=== PATIENT | female | born 1980 | race Caucasian/White ===

== ENCOUNTER 2016-10-26 11:31 | Emergency (ER) | payer OTHER ==
[~2016-10-26] VITALS: Ht 162.6 cm; Wt 84.0 kg
[~2016-10-26 11:31] MED LIST: BENZ0.5T PO; CLON.5 PO; FLUO-1 PO; LITH150C7 PO; OMPR20CCR PO; PROP10TA6 PO; TRAZ100 PO
[2016-10-26 11:39] VITALS: BP 125/86; PULSE 68; RESP 16; TEMP 98.6; O2SAT 96
[2016-10-26] MEDS ORDERED: XANA2TAB2 PO (12:01)
[2016-10-26] MEDS ORDERED: SAPH10SU3 SL (12:01)
[2016-10-26] MEDS ORDERED: FURO1TAB62 PO (12:01)
[2016-10-26] MEDS ORDERED: IBUP-1129 PO (12:01)
[2016-10-26] MEDS ORDERED: HYDR50TA94 PO (12:01)
[2016-10-26] MEDS ORDERED: LITH600C PO (12:01)
[2016-10-26] MEDS ORDERED: ZOFR8TAB4 SL (12:01)
[2016-10-26] MEDS ORDERED: ALLI60CA2 PO (12:01)
[2016-10-26] MEDS ORDERED: GABA100C4 PO (12:01)
[2016-10-26] MEDS ORDERED: POTA-243 PO (12:01)
--- NOTE | 2016-10-26 12:32 | RADHPO ---
EXAM DATE/TIME: 10/26/2016 12:16 [facility] COMPARISON: No previous studies available for comparison. INDICATIONS : Left knee pain after fall. MEDICAL HISTORY : Torn meniscus SURGICAL HISTORY : None. ENCOUNTER: Initial ACUITY: 2 days PAIN SCORE: 6/10 LOCATION: Left entire knee FINDINGS: Four view examination of the left knee demonstrates no evidence of fracture or dislocation. Bony min eralization is normal. The articular surfaces are intact. The suprapatellar soft tissues have a nor mal configuration. CONCLUSION: Negative for fracture or dislocation. Follow up in 7-10 days is suggested if symptoms persist. Jarrod Gamboa MD FACR on October 26, 2016 at 12:30 Board Certified Radiologist. This report was verified electronically.
--- NOTE | 2016-10-26 12:39 | PD ---
HPI Chief Complaint: Fall Time Seen by Provider: 12:00 Travel History International Travel<30 days: No Contact w/Intl Traveler<30days: No Traveled to known affect area: No History of Present Illness HPI 36-year-old female presents emergency department for evaluation of left knee pain status post fall yesterday. Patient reports she was walking with a walker yesterday when she tripped falling onto her left flexed knee. She did not hit her head. No loss of consciousness. Reports pain only in the left knee. Pain is worse with flexion and weightbearing. Patient underwent left hip ORIF in [place] [address] Julián rico after sustaining a hip fracture from a fall she has been ambulating with a walker since. She also reports bilateral lower extremity swelling since the surgery. She reports her primary care doctor recently started her her on a diuretic for the edema with little improvement. She denies having prior ultrasound of the legs. She denies fever, chills, chest pain, shortness breath, or abdominal pain. PFSH Past Medical History Narrative Medical Significant for bipolar, depression, anxiety, schizoaffective disorder. Recent left hip ORIF Anemia: Yes Bipolar Disorder: Yes Anxiety: Yes Depression: Yes Chest Pain: Yes Diabetes: No Diminished Hearing: No Gastrointestinal Disorders: Yes GERD: Yes Medical other: Yes (edema) Psychiatric: Yes Schizophrenia: Yes Seizures: Yes (PT STATES " I THINK I HAD A SEIZURE A COUPLE OF MONTHS AGO") Tetanus Vaccination: > 5 Years Influenza Vaccination: No PNEUMOCCOCAL Vaccine (Year): 2 ?: Not LMP: PT STATES YEARS-DENIES POSSIBILITY OF Past Surgical History Appendectomy: Yes Cholecystectomy: Yes Tonsillectomy: Yes Social History Alcohol Use: Yes (OCCASIONALLY) Tobacco Use: Yes (ELECTRONIC CIGARETTES) Substance Use: No Allergies-Medications (Allergen,Severity, Reaction): Coded Allergies: Latuda (Verified Allergy, Severe, HALLUCINATIONS, 10/26/16) Reported Meds & Prescriptions Reported Meds & Active Scripts Active Reported Xanax (Alprazolam) 2 Mg Tab 2 Mg PO Q8H PRN Hydroxyzine HCl 50 Mg Tab 50 Mg PO BID Lasix (Furosemide) 20 Mg Tab 20 Mg PO DAILY Klor-Con 10 (Potassium Chloride) 10 Meq Tab 10 Meq PO DAILY Gabapentin 100 Mg Cap 100 Mg PO TID Saphris (Asenapine) 10 Mg Subl 10 Mg SL BID Zofran Odt (Ondansetron Odt) 8 Mg Tab 8 Mg SL Q8HR Zeferino (Orlistat) 60 Mg Cap 1 Caplet PO DIRECTED Motrin Ib (Ibuprofen) 200 Mg Tablet 600 Mg PO Q4HR PRN [place] Carbonate 600 Mg Cap 900 Mg PO BID Physical Exam Narrative GENERAL: Alert, well-nourished female. No acute distress SKIN: Focused skin assessment warm/dry. HEAD: Atraumatic. Normocephalic. EYES: Pupils equal and round. No scleral icterus. No injection or drainage. ENT: No nasal bleeding or discharge. Mucous membranes pink and moist. NECK: Trachea midline. No JVD. CARDIOVASCULAR: Regular rate and rhythm. No murmur appreciated. RESPIRATORY: No accessory muscle use. Clear to auscultation. Breath sounds equal bilaterally. GASTROINTESTINAL: Abdomen soft, non-tender, nondistended. Hepatic and splenic margins not palpable. MUSCULOSKELETAL: No obvious deformities. No clubbing. No cyanosis. Bilateral lower extremity edema nonpitting right leg slightly larger than left. Left knee : Tender with anterior aspect. No effusion. No deformity. Left hip: Nontender. 3 surgical scars present well-healed without erythema or signs of infection. NEUROLOGICAL: Awake and alert. No obvious cranial nerve deficits. Motor grossly within normal limits. Normal speech. PSYCHIATRIC: Appropriate mood and affect; insight and judgment normal. Data Data Last Documented VS Vital Signs Date Time Temp Pulse Resp B/P Pulse Ox O2 Delivery O2 Flow Rate FiO2 10/26/16 11:39 98.6 68 16 125/86 96 Orders Us Leg Venous Doppler Bilat (10/26/16 ) Knee, Complete (4vws) (10/26/16 ) [facility] Medical Decision Making Medical Screen Exam Complete: Yes Emergency Medical Condition: Yes Differential Diagnosis Left knee painsprain versus fracture, lower extremity edemaDVT versus peripheral edema Narrative Course 36-year-old female presents emergency department for evaluation of left knee pain status post mechanical fall. Patient reports only knee pain no other injuries. She denies hip pain. Patient recently underwent left hip ORIF in July 2016. Since the surgery she's been ambulating with a walker. While examining her knee it was noted that she had bilateral lower extremity edema. She reports this is been present since the surgery. She reports her primary care recently put her on a diuretic for the swelling with little relief. She reports she has not had an ultrasound of the legs to evaluate. X-ray of left knee and duplex ultrasound of lower extremities to rule out DVT pending. Left knee x-ray: Negative for fracture Ultrasound bilateral lower extremity: Negative for DVT Discuss diagnostic findings with patient and family. She was instructed to follow up with her primary doctor for reevaluation. She was encouraged to take the diuretic as prescribed. Tylenol or NSAIDs for left knee pain. Patient is in agreement to this plan. Diagnosis Primary Impression: Left knee pain Qualified Code: M25.562 - Left knee pain, unspecified chronicity Additional Impression: Peripheral edema Referrals: Primary Care Physician Additional Instructions: Follow-up with her primary doctor for reevaluation of her lower extremity edema. Take your current diuretic as prescribed. I recommend following up with her orthopedic doctor regarding her left knee pain. He can take Tylenol or Motrin as needed for pain. Return to the emergency department for evaluation of new or worsening symptoms. Disposition: 01 DISCHARGE HOME Condition: Stable Sandra Cantu Oct 26, 2016 12:39
--- NOTE | 2016-10-26 13:40 | RADHPO ---
EXAM DATE/TIME: 10/26/2016 13:00 [facility] COMPARISON: No previous studies available for comparison. INDICATIONS : Bilateral leg swelling with pain on left since yesterday. MEDICAL HISTORY : Gastroesophageal reflux disease. Seizures. Liver disease. Schizophrenia. Bipolar. Anxiety. Previous suicide attempts. SURGICAL HISTORY : Tonsillectomy.Appendectomy. Cholecystectomy.Left knee surgery. ENCOUNTER: Initial ACUITY: 2 day PAIN SCORE: 3/10 LOCATION: Bilateral leg. TECHNIQUE: Venous ultrasound of the left and right leg was performed from the inguinal ligament to the proximal calf. Real-time, color Doppler and spectral tracing, compression and augmentation techniques were us ed. FINDINGS: RIGHT LEG: There is normal compressibility of the deep venous system from the inguinal region to the proximal ca lf. No echogenic clot is seen in the lumen of the common femoral, femoral, popliteal, and posterior tibial veins. There is a normal response of the venous system to proximal and distal augmentation an d respiration. Subcutaneous tissues appear edematous in the calf region. LEFT LEG: There is normal compressibility of the deep venous system from the inguinal region to the proximal ca lf. No echogenic clot is seen in the lumen of the common femoral, femoral, popliteal, and posterior tibial veins. There is a normal response of the venous system to proximal and distal augmentation an d respiration. Subcutaneous tissues appear edematous and the calf region. CONCLUSION: 1. Bilateral lower extremity subcutaneous edema in the calf regions. 2. However, no sonographic or Doppler findings of deep venous thrombosis. Jesu Chan MD on October 26, 2016 at 13:36 Board Certified Radiologist. This report was verified electronically.
[2016-10-26] MEDS ORDERED: KETOROLAC TROMETHAMINE 60 MG/2 ML (IM) VIAL IM ONE (14:00)
== END 2016-10-26 14:21 | disposition home or self-care (01) ==
LOC: PHED 11:31 → PHEFT 14:21
DX: M25.562 Pain in left knee (principal); R60.0 Localized edema; W01.0XXA Fall on same level from slipping, tripping and stumbling without subsequent striking against object, initial encounter; F31.9 Bipolar disorder, unspecified; K21.9 Gastro-esophageal reflux disease without esophagitis
CPT/HCPCS: 73564; 93970; 96372; 99285; J1885